=== PATIENT | male | born 1985 | race Caucasian/White ===

== ENCOUNTER → 2016-07-12 | Outpatient (CLI) | payer OTHER ==
[~2016-07-12] MED LIST: AZIT250T81 PO
[2016-07-12 11:14] VITALS: BP 128/74
--- NOTE | 2016-07-12 11:14 | Urgent Care T Sheet Gen (E) ---
Intake General Temperature (Fahrenheit): 98.0 Pulse: 61 Blood Pressure Systolic: 128 Blood Pressure Diastolic: 74 Respirations: 18 SPO2: 98 Description of Symptoms patient presents with illness x 1 week. Patient states he was feeling better until a few days ago when his symptoms worsened drastically. Notes chest congestion and productive cough. has felt feverish but no documented temp. Mild sinus congestion. States he has been exposed to walking pneumonia (his kids are currently being treated). Been taking Robitussin, Sudafed and Flonase. Respiratory Constitutional Symptoms: No Fever, Malaise EENTM: Nose Congestion Respiratory: Cough Short of breathNo Wheezing Cardiovascular: No symptoms reported Gastrointestinal/Abdominal: No symptoms reported All Other Systems Reviewed Remaining Systems: All other systems reviewed with negative findings Physical Exam Physical Exam General Appearance: WD/WN No apparent distress Eyes, Ears, Nose, Throat Ex: TMs normal Pharynx normal Other (clear nasal drainage. not much congestion) Neck Exam: SuppleNo Lymphadenopathy Respiratory Exam: RhonchiNo Wheezes Cardiovascular Exam: Regular rate, rhythm Departure Urgent Care Impression Impression: Primary Impression: Bronchitis Departure Disposition: HOME OR SELF-CARE Condition: Stable Referrals: MAIKOL NEWBY (PCP) Additional Instructions: I have started the patient on a Z-pack for treatment. This has coverage for mycoplasma pneumonemia which his kids are currently being treated for. Suggested he continue with the Robitussin and Flonase. His nose was fairly clear. Rest. Fluids Return as needed Patient understands DC instructions. All questions were answered. Scripts Azithromycin (Zithromax Z-Fernando)6 Tab/Pkt [id number] Mg PO SEE INSTRUCTIONS #6 TAB Ref 0 Day One: Take 2 tablets by mouth Days Two-Five: Take 1 tablet by mouth Prov:TAHMINA LEAL 07/12/16 End of report . TAHMINA LEAL Jul 12, 2016 11:14
== END ==
LOC: MHUC 10:59
PROVIDERS: ATTEND Physician Assistant
DX: J40 Bronchitis, not specified as acute or chronic (principal)
CPT/HCPCS: 99213